=== PATIENT | female | born 1975 | race African-American/Black ===

== ENCOUNTER 2017-04-05 19:33 | Emergency (ER) | payer SELFPAY ==
[~2017-04-05] VITALS: Ht 167.6 cm; Wt 70.7 kg
[2017-04-05] MEDS ORDERED: LORazepam 1MG TABLET ONE (19:51)
[2017-04-05] MEDS ORDERED: LORazepam 1MG TABLET PO ONE (20:00)
[2017-04-05 20:40] LABS: FREE T4 (FREE THYROXINE) 1.22 ng/dL (0.76-1.46); THYROID STIMULATING HORMONE 0.936 mIU/L (0.358-3.740)
[2017-04-05 20:52] VITALS: BP 172/118
== END 2017-04-05 21:42 | disposition left against medical advice (07) ==
LOC: ED 21:36
DX: I10 Essential (primary) hypertension (principal)
CPT/HCPCS: 36415; 84439; 84443; 93005; 99285

== ENCOUNTER 2017-11-28 12:16 | Emergency (ER) | payer OTHER, MEDICAID ==
[~2017-11-28] VITALS: Ht 167.6 cm; Wt 68.0 kg
[2017-11-28 13:56] VITALS: BP 157/109
== END 2017-11-28 15:09 | disposition home or self-care (01) ==
LOC: ED 13:45
DX: R10.9 Unspecified abdominal pain (principal); R11.0 Nausea
CPT/HCPCS: 36415; 74176; 84702; 99285

== ENCOUNTER 2018-04-19 14:44 | Emergency (ER) | payer MEDICAID, OTHER ==
[~2018-04-19] VITALS: Ht 167.6 cm; Wt 66.0 kg
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
--- NOTE | 2018-04-19 15:30 | NUR ---
pt resting on [facility], provided with ice with MD angelo. bp and spo2 monitors in place. call light in reach. bed locked and in lowest position. xray resulted, awaiting MD and dispo at this time.
[2018-04-19] MEDS ORDERED: LIDOCAINE-MPF 1%, 5ML ONE (15:56)
--- NOTE | 2018-04-19 16:00 | NUR ---
report given to CHRISTIANO Roland.
--- NOTE | 2018-04-19 16:00 | NUR ---
SBAR report received from RN, Ronda. Sarah TAPIA, at bedside for I&D, pt refusing. Pt to sign AMA paperwork and be discharged with ABX.
--- NOTE | 2018-04-19 16:08 | NUR ---
AMA paperwork signed, pt still states that she will not have I&D done, and states that she understands risks of leaving without procedure.
[2018-04-19 16:19] VITALS: BP 140/85
--- NOTE | 2018-04-19 16:37 | NUR ---
Patient/Caregiver given discharge instructions and they have confirmed that they understand the instructions. Patient ambulatory with steady gait.
== END 2018-04-19 16:38 | disposition home or self-care (01) ==
LOC: ED 16:32
DX: L03.114 Cellulitis of left upper limb (principal); F11.10 Opioid abuse, uncomplicated; I10 Essential (primary) hypertension
CPT/HCPCS: 99283

== ENCOUNTER 2019-09-18 07:28 | Emergency (ER) | payer OTHER, MEDICAID ==
[~2019-09-18] VITALS: Ht 167.6 cm; Wt 70.0 kg
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
[2019-09-18] MEDS ORDERED: HYDR12.517 PO (07:41)
--- NOTE | 2019-09-18 07:42 | NUR ---
Trini TAPIA at for eval and poc. waiting for additional orders, WCTM.
[2019-09-18] MEDS ORDERED: BUPR1FIL3 SL (07:44)
[2019-09-18 08:31] VITALS: BP 142/95
--- NOTE | 2019-09-18 08:31 | NUR ---
pt sitting up in [facility] on phone, NAD, no acute change in condition, ANOx4, WCTM. waiting for recheck.
--- NOTE | 2019-09-18 08:49 | NUR ---
Patient given discharge instructions and they have confirmed that they understand the instructions. Patient ambulatory with crutches. pt NAD, denies additional questions or concerns at discharge. no belongings left in room after dc.
== END 2019-09-18 08:50 | disposition home or self-care (01) ==
LOC: ED 08:15
DX: S93.491A Sprain of other ligament of right ankle, initial encounter (principal); G89.11 Acute pain due to trauma; V79.50XA Passenger on bus injured in collision with unspecified motor vehicles in traffic accident, initial encounter; Y93.89 Activity, other specified; Y92.488 Other paved roadways as the place of occurrence of the external cause; Y99.8 Other external cause status
CPT/HCPCS: 99284